=== PATIENT | female | born 1940 | race Caucasian/White ===

== ENCOUNTER 2016-12-14 05:58 | Day surgery (SDC) | payer MEDICARE, OTHER ==
[~2016-12-14] VITALS: Ht 160 cm; Wt 88.5 kg
[~2016-12-14 05:58] MED LIST: AMOXICILLIN500 MG PO; CENTRUM SILVER1 TAB; CLARITIN10 M1 PO; CYMBALTA60 MG PO; FISH OIL CON300 MG PO; FISH OIL1000 M2; FLONASE NASAL50 MCG; HYDROCO/APAP1 TA9 PO; LEVOTHYROXIN50 MCG PO; LIPITOR20 M1 PO; LISINOPRIL20 MG PO; LORTAB 5-325 MG1 TAB PO; LUTEIN20 MG PO; MEDDOSEPAK PO; METAXALONE PO; PRILOSEC20 MG PO; TENORMIN PO; VENTOLIN HF1 IN
[2016-12-14 08:05] VITALS: BP 129/62
[2017-01-03] MEDS ORDERED: VOLTAREN1%GEL TOP (11:47)
== END 2016-12-14 07:55 | disposition home or self-care (01) ==
LOC: ORM 05:58
PROVIDERS: ATTEND Anesthesiology Pain Medicine
PROC: 3E0U33Z Introduction of Anti-inflammatory into Joints, Percutaneous Approach (ICD-10-PCS; principal; 2016-12-14)
PROC: 3E0U3BZ Introduction of Anesthetic Agent into Joints, Percutaneous Approach (ICD-10-PCS; 2016-12-14)
DX: M46.1 Sacroiliitis, not elsewhere classified (principal); M25.551 Pain in right hip
CPT/HCPCS: Q9967

== ENCOUNTER 2017-05-19 12:46 | Emergency (ER) | payer MEDICARE, OTHER ==
[~2017-05-19] VITALS: Ht 160 cm; Wt 90.0 kg
[~2017-05-19 12:46] MED LIST changes: +VOLTAREN1%GEL TOP
[2017-05-19 13:56] VITALS: BP 150/83
== END 2017-05-19 13:55 | disposition home or self-care (01) ==
LOC: ED 12:46
DX: S06.0X0A Concussion without loss of consciousness, initial encounter (principal); I10 Essential (primary) hypertension; E78.00 Pure hypercholesterolemia, unspecified; E03.9 Hypothyroidism, unspecified; G47.30 Sleep apnea, unspecified; K21.9 Gastro-esophageal reflux disease without esophagitis; H35.30 Unspecified macular degeneration; W22.8XXA Striking against or struck by other objects, initial encounter; Y92.009 Unspecified place in unspecified non-institutional (private) residence as the place of occurrence of the external cause

== ENCOUNTER 2017-08-25 13:19 | Emergency (ER) | payer MEDICARE, OTHER ==
[~2017-08-25] VITALS: Ht 160 cm; Wt 86.0 kg
[2017-08-25 16:17] LABS: HEMATOCRIT 39.4 % (37.0-47.0); HEMOGLOBIN 13.3 g/dl (12.0-16.0); IMMATURE GRANULOCYTES 0.4 % (0.0-1.0); MEAN CELL VOLUME 92.9 fL CALC (80.0-100.0); MEAN CORPUSCULAR HGB 31.4 pG CALC (26.0-32.0); MEAN CORPUSCULAR HGB CONC 33.8 g/L CALC (32.0-36.0); NEUT# 2.22 thou/uL (2.00-7.15); RED BLOOD COUNT 4.24 mill/uL (4.20-5.60); RED CELL DISTRI WIDTH 12.2 % (11.5-15.5)
[2017-08-25 16:52] LABS: INFLUENZA A NONE DETECTED (NONE DETECT); INFLUENZA B NONE DETECTED (NONE DETECT)
[2017-08-25] MEDS ORDERED: DELTASONE20 MG PO (17:01)
[2017-08-25] MEDS ORDERED: AMOXICILLIN500 M2 PO (17:01)
[2017-08-25 17:14] VITALS: BP 159/84
== END 2017-08-25 17:15 | disposition home or self-care (01) ==
LOC: ED 13:19
PROVIDERS: Emergency Medicine
DX: J02.0 Streptococcal pharyngitis (principal); R05 Cough; R51 Headache; R50.9 Fever, unspecified; R09.89 Other specified symptoms and signs involving the circulatory and respiratory systems

== ENCOUNTER 2017-10-04 06:54 | Day surgery (SDC) | payer MEDICARE, OTHER ==
[~2017-10-04] VITALS: Ht 160 cm; Wt 87.1 kg
[~2017-10-04 06:54] MED LIST changes: +AMOXICILLIN500 M2 PO; +DELTASONE20 MG PO; +METAXALONE; +NORCO1 TA1 PO
[2017-10-04 10:11] VITALS: BP 148/78
== END 2017-10-04 09:55 | disposition home or self-care (01) ==
LOC: ORM 06:54
PROVIDERS: ATTEND Anesthesiology Pain Medicine
PROC: 3E0U3BZ Introduction of Anesthetic Agent into Joints, Percutaneous Approach (ICD-10-PCS; principal; 2017-10-04)
PROC: 3E0U33Z Introduction of Anti-inflammatory into Joints, Percutaneous Approach (ICD-10-PCS; 2017-10-04)
DX: M46.1 Sacroiliitis, not elsewhere classified (principal)

== ENCOUNTER 2017-10-18 06:43 | Day surgery (SDC) | payer MEDICARE, OTHER ==
[~2017-10-18] VITALS: Ht 160 cm; Wt 87.5 kg
[2017-10-18 08:13] VITALS: BP 158/77
== END 2017-10-18 08:40 | disposition home or self-care (01) ==
LOC: ORM 06:43
PROVIDERS: ATTEND Anesthesiology Pain Medicine
PROC: 3E0U33Z Introduction of Anti-inflammatory into Joints, Percutaneous Approach (ICD-10-PCS; principal; 2017-10-18)
PROC: 3E0U3BZ Introduction of Anesthetic Agent into Joints, Percutaneous Approach (ICD-10-PCS; 2017-10-18)
PROC: 3E0U33Z Introduction of Anti-inflammatory into Joints, Percutaneous Approach (ICD-10-PCS; 2017-10-18)
PROC: 3E0U3BZ Introduction of Anesthetic Agent into Joints, Percutaneous Approach (ICD-10-PCS; 2017-10-18)
DX: M25.562 Pain in left knee (principal); M17.12 Unilateral primary osteoarthritis, left knee; M65.88 Other synovitis and tenosynovitis, other site
CPT/HCPCS: J7325

== ENCOUNTER → 2017-11-01 | Day surgery (SDC) | payer MEDICARE, OTHER ==
[~2017-11-01] VITALS: Ht 160 cm; Wt 86.2 kg
[2017-11-01 07:40] VITALS: BP 139/74
== END ==
LOC: ORM 06:04
PROVIDERS: ATTEND Anesthesiology Pain Medicine
PROC: 3E0U3BZ Introduction of Anesthetic Agent into Joints, Percutaneous Approach (ICD-10-PCS; principal; 2017-11-01)
PROC: 3E0U33Z Introduction of Anti-inflammatory into Joints, Percutaneous Approach (ICD-10-PCS; 2017-11-01)
DX: M25.562 Pain in left knee (principal); M17.12 Unilateral primary osteoarthritis, left knee; M65.9 Synovitis and tenosynovitis, unspecified
CPT/HCPCS: J7325

== ENCOUNTER 2017-11-15 06:44 | Day surgery (SDC) | payer MEDICARE, OTHER ==
[~2017-11-15] VITALS: Ht 160 cm; Wt 86.2 kg
[2017-11-15 08:29] VITALS: BP 159/73
== END 2017-11-15 08:37 | disposition home or self-care (01) ==
LOC: ORM 06:44
PROVIDERS: ATTEND Anesthesiology Pain Medicine
PROC: 3E0U33Z Introduction of Anti-inflammatory into Joints, Percutaneous Approach (ICD-10-PCS; principal; 2017-11-15)
PROC: 3E0U3BZ Introduction of Anesthetic Agent into Joints, Percutaneous Approach (ICD-10-PCS; 2017-11-15)
DX: M25.562 Pain in left knee (principal); M17.12 Unilateral primary osteoarthritis, left knee

== ENCOUNTER 2018-01-24 07:35 | Day surgery (SDC) | payer MEDICARE, OTHER ==
[~2018-01-24] VITALS: Ht 160 cm; Wt 88.5 kg
[~2018-01-24 07:35] MED LIST changes: +VITAMIN D PO
[2018-01-24 09:59] VITALS: BP 146/67
== END 2018-01-24 09:52 | disposition home or self-care (01) ==
LOC: ORM 07:35
PROVIDERS: ATTEND Anesthesiology Pain Medicine
PROC: 3E0U33Z Introduction of Anti-inflammatory into Joints, Percutaneous Approach (ICD-10-PCS; principal; 2018-01-24)
PROC: 3E0U3BZ Introduction of Anesthetic Agent into Joints, Percutaneous Approach (ICD-10-PCS; 2018-01-24)
PROC: 3E0U33Z Introduction of Anti-inflammatory into Joints, Percutaneous Approach (ICD-10-PCS; 2018-01-24)
PROC: 3E0U3BZ Introduction of Anesthetic Agent into Joints, Percutaneous Approach (ICD-10-PCS; 2018-01-24)
DX: M46.1 Sacroiliitis, not elsewhere classified (principal); M54.5 Low back pain; M71.551 Other bursitis, not elsewhere classified, right hip
CPT/HCPCS: 20610; G0260

== ENCOUNTER 2018-02-14 08:30 | Day surgery (SDC) | payer MEDICARE, OTHER ==
[~2018-02-14] VITALS: Ht 160 cm; Wt 85.7 kg
[2018-02-14] MEDS ORDERED: NORCO1 TA1 PO (08:56)
== END 2018-02-14 09:10 | disposition home or self-care (01) ==
LOC: ORM 08:30
PROVIDERS: ATTEND Anesthesiology Pain Medicine
DX: M46.1 Sacroiliitis, not elsewhere classified (principal); M25.551 Pain in right hip; Z53.8 Procedure and treatment not carried out for other reasons

== ENCOUNTER 2018-04-17 14:35 | Emergency (ER) | payer MEDICARE, OTHER ==
[~2018-04-17] VITALS: Ht 160 cm; Wt 90.0 kg
[2018-04-17] MEDS ORDERED: BLOOD PRESSURE MED (15:11)
[2018-04-17 16:25] VITALS: BP 124/74
== END 2018-04-17 16:30 | disposition home or self-care (01) ==
LOC: ED 14:35
DX: S00.03XA Contusion of scalp, initial encounter (principal); S40.011A Contusion of right shoulder, initial encounter; S70.01XA Contusion of right hip, initial encounter; I10 Essential (primary) hypertension; W01.198A Fall on same level from slipping, tripping and stumbling with subsequent striking against other object, initial encounter; Y92.009 Unspecified place in unspecified non-institutional (private) residence as the place of occurrence of the external cause

== ENCOUNTER 2018-05-03 17:30 | Emergency (ER) | payer MEDICARE, OTHER ==
[~2018-05-03] VITALS: Ht 160 cm; Wt 90.0 kg
[~2018-05-03 17:30] MED LIST changes: +BLOOD PRESSURE MED
[2018-05-03 18:40] LABS: HEMOGLOBIN 13.1 g/dl (12.0-16.0); IMMATURE GRANULOCYTES 0.4 % (0.0-5.0); MEAN CELL VOLUME 92.2 fL CALC (80.0-100.0); MEAN CORPUSCULAR HGB CONC 33.6 g/L CALC (32.0-36.0); NEUT# 2.58 thou/uL (2.00-7.15); RED BLOOD COUNT 4.23 mill/uL (4.20-5.60); RED CELL DISTRI WIDTH 12.3 % (11.5-15.5)
[2018-05-03] MEDS ORDERED: AMLODIPINE5 MG PO (18:55)
[2018-05-03 18:56] LABS: ALKALINE PHOSPHATASE 60 u/l (38-126); AMYLASE 71 u/l (30-110); ANION GAP 11 (6-22 (CALC)); BILIRUBIN, TOTAL 0.6 mg/dL (0.0-1.4); BUN 15 mg/dL (8-23); BUN/CREATININE RATIO 20 (12-20 (CALC)); CARBON DIOXIDE 28 mmol/l (22-30); CHLORIDE 105 mmol/l (95-108); CREATININE 0.7 mg/dL (0.5-1.0); GFR > 60 ML/MIN (>=60 (CALC)); GFR FOR AFR.AMER. > 60 ML/MIN (>=60 (CALC)); LIPASE 78 u/l (23-300); POTASSIUM 4.2 mmol/l (3.5-5.1); SGOT/AST 32 u/l (9-36); SGPT/ALT 41 u/l (11-66); SODIUM 140 mmol/l (137-146); TOTAL PROTEIN 7.1 g/dL (6.3-8.2)
[2018-05-03 19:08] LABS: MYOGLOBIN 26 ng/mL (0 - 62)
[2018-05-03 20:38] VITALS: BP 127/68
[2018-05-03 20:44] LABS: URINE BILIRUBIN - DIPSTICK NEGATIVE (NEGATIVE); URINE BLOOD DIPSTICK NEGATIVE (NEGATIVE); URINE COLOR YELLOW; URINE GLUCOSE - DIPSTICK NEGATIVE (NEGATIVE); URINE KETONE NEGATIVE (NEGATIVE); URINE LEUK ESTERASE NEGATIVE (NEGATIVE); URINE NITRITE - DIPSTICK NEGATIVE (Negative); URINE PROTEIN - DIPSTICK NEGATIVE (NEG-TRACE); URINE SPECIFIC GRAVITY 1.015; URINE UROBILINOGEN - DIPSTICK 0.2 E.U./dL (0.2)
[2018-05-03 21:08] LABS: URINE CLARITY CLEAR
== END 2018-05-03 20:51 | disposition left against medical advice (07) ==
LOC: ED 17:30
PROVIDERS: Emergency Medicine
DX: R07.9 Chest pain, unspecified (principal); I10 Essential (primary) hypertension; Z91.19 Patient's noncompliance with other medical treatment and regimen
CPT/HCPCS: S0164

== ENCOUNTER 2018-08-15 07:28 | Day surgery (SDC) | payer MEDICARE, OTHER ==
[~2018-08-15] VITALS: Ht 160 cm; Wt 83.9 kg
[~2018-08-15 07:28] MED LIST changes: +AMLODIPINE5 MG PO
[2018-08-15 09:34] VITALS: BP 146/72
== END 2018-08-15 10:25 | disposition home or self-care (01) ==
LOC: ORM 07:28
PROVIDERS: ATTEND Anesthesiology Pain Medicine
PROC: 3E0U33Z Introduction of Anti-inflammatory into Joints, Percutaneous Approach (ICD-10-PCS; principal; 2018-08-15)
PROC: 3E0U3BZ Introduction of Anesthetic Agent into Joints, Percutaneous Approach (ICD-10-PCS; 2018-08-15)
PROC: 3E0U33Z Introduction of Anti-inflammatory into Joints, Percutaneous Approach (ICD-10-PCS; 2018-08-15)
PROC: 3E0U3BZ Introduction of Anesthetic Agent into Joints, Percutaneous Approach (ICD-10-PCS; 2018-08-15)
DX: M46.1 Sacroiliitis, not elsewhere classified (principal); M25.551 Pain in right hip; M70.71 Other bursitis of hip, right hip
CPT/HCPCS: 20610; G0260

== ENCOUNTER 2018-09-12 06:05 | Day surgery (SDC) | payer MEDICARE, OTHER ==
[~2018-09-12] VITALS: Ht 160 cm; Wt 83.9 kg
[2018-09-12 07:59] VITALS: BP 125/56
[2018-09-12] MEDS ORDERED: VOLTAREN1%GEL TOP ×2 (08:02→08:03)
== END 2018-09-12 08:20 | disposition home or self-care (01) ==
LOC: ORM 06:05
PROVIDERS: ATTEND Anesthesiology Pain Medicine
PROC: 3E0T3BZ Introduction of Anesthetic Agent into Peripheral Nerves and Plexi, Percutaneous Approach (ICD-10-PCS; principal; 2018-09-12)
PROC: 3E0T33Z Introduction of Anti-inflammatory into Peripheral Nerves and Plexi, Percutaneous Approach (ICD-10-PCS; 2018-09-12)
PROC: BR141ZZ Fluoroscopy of Cervical Facet Joint(s) using Low Osmolar Contrast (ICD-10-PCS; 2018-09-12)
DX: M54.2 Cervicalgia (principal); M47.812 Spondylosis without myelopathy or radiculopathy, cervical region
CPT/HCPCS: Q9967

== ENCOUNTER 2018-11-07 06:18 | Day surgery (SDC) | payer MEDICARE, OTHER ==
[~2018-11-07] VITALS: Ht 160 cm; Wt 83.0 kg
[~2018-11-07 06:18] MED LIST changes: +NORCO1 TA2 PO
[2018-11-07 07:56] VITALS: BP 125/63
== END 2018-11-07 08:16 | disposition home or self-care (01) ==
LOC: ORM 06:18
PROVIDERS: ATTEND Anesthesiology Pain Medicine
PROC: 3E0U33Z Introduction of Anti-inflammatory into Joints, Percutaneous Approach (ICD-10-PCS; principal; 2018-11-07)
PROC: 3E0U3BZ Introduction of Anesthetic Agent into Joints, Percutaneous Approach (ICD-10-PCS; 2018-11-07)
PROC: 3E0U33Z Introduction of Anti-inflammatory into Joints, Percutaneous Approach (ICD-10-PCS; 2018-11-07)
PROC: 3E0U3BZ Introduction of Anesthetic Agent into Joints, Percutaneous Approach (ICD-10-PCS; 2018-11-07)
DX: M46.1 Sacroiliitis, not elsewhere classified (principal); M25.551 Pain in right hip; M70.61 Trochanteric bursitis, right hip; M54.5 Low back pain
CPT/HCPCS: 20610; G0260

== ENCOUNTER 2019-01-02 06:55 | Day surgery (SDC) | payer MEDICARE, OTHER ==
[~2019-01-02] VITALS: Ht 160 cm; Wt 86.2 kg
[2019-01-02 08:58] VITALS: BP 100/58
== END 2019-01-02 09:05 | disposition home or self-care (01) ==
LOC: ENDO 06:55 → ORM 08:15 → ENDO 08:15
PROVIDERS: ATTEND Surgery
PROC: 0DJ08ZZ Inspection of Upper Intestinal Tract, Via Natural or Artificial Opening Endoscopic (ICD-10-PCS; principal; 2019-01-02)
DX: K44.9 Diaphragmatic hernia without obstruction or gangrene (principal); I10 Essential (primary) hypertension; E03.9 Hypothyroidism, unspecified

== ENCOUNTER 2019-02-27 06:43 | Day surgery (SDC) | payer MEDICARE, OTHER ==
[2019-02-27 08:58] VITALS: BP 147/73
== END 2019-02-27 09:25 | disposition home or self-care (01) ==
LOC: ORM 06:43
PROVIDERS: ATTEND Anesthesiology Pain Medicine
PROC: 3E0T3BZ Introduction of Anesthetic Agent into Peripheral Nerves and Plexi, Percutaneous Approach (ICD-10-PCS; principal; 2019-02-27)
PROC: 3E0T33Z Introduction of Anti-inflammatory into Peripheral Nerves and Plexi, Percutaneous Approach (ICD-10-PCS; 2019-02-27)
PROC: BR161ZZ Fluoroscopy of Lumbar Facet Joint(s) using Low Osmolar Contrast (ICD-10-PCS; 2019-02-27)
PROC: 3E0T3BZ Introduction of Anesthetic Agent into Peripheral Nerves and Plexi, Percutaneous Approach (ICD-10-PCS; 2019-02-27)
PROC: 3E0T33Z Introduction of Anti-inflammatory into Peripheral Nerves and Plexi, Percutaneous Approach (ICD-10-PCS; 2019-02-27)
DX: M54.5 Low back pain (principal)

== ENCOUNTER 2019-03-18 06:50 | Emergency (ER) | payer MEDICARE, OTHER ==
[~2019-03-18] VITALS: Ht 160 cm; Wt 84.1 kg
[2019-03-18 07:46] LABS: HEMATOCRIT 37.8 % (37.0-47.0); HEMOGLOBIN 12.8 g/dl (12.0-16.0); IMMATURE GRANULOCYTES 0.2 % (0.0-5.0); MEAN CELL VOLUME 91.1 fL CALC (80.0-100.0); MEAN CORPUSCULAR HGB 30.8 pG CALC (26.0-32.0); MEAN CORPUSCULAR HGB CONC 33.9 g/L CALC (32.0-36.0); NEUT# 2.26 thou/uL (2.00-7.15); RED BLOOD COUNT 4.15 mill/uL (4.20-5.60)
[2019-03-18 08:04] LABS: ANION GAP 14 (6-22 (CALC)); BUN 18 mg/dL (8-23); BUN/CREATININE RATIO 26 (12-20 (CALC)); CARBON DIOXIDE 26 mmol/l (22-30); CHLORIDE 105 mmol/l (95-108); CREATININE 0.7 mg/dL (0.5-1.0); GFR > 60 ML/MIN (>=60 (CALC)); GFR FOR AFR.AMER. > 60 ML/MIN (>=60 (CALC)); POTASSIUM 4.2 mmol/l (3.5-5.1); SODIUM 141 mmol/l (137-146)
[2019-03-18 08:54] VITALS: BP 139/88
== END 2019-03-18 09:03 | disposition home or self-care (01) ==
LOC: ED 06:50
PROVIDERS: Family Medicine
DX: R51 Headache (principal); I10 Essential (primary) hypertension

== ENCOUNTER 2019-05-11 15:33 | Emergency (ER) | payer MEDICARE, OTHER ==
[~2019-05-11] VITALS: Ht 160 cm; Wt 110.0 kg
[2019-05-11] MEDS ORDERED: HYDROCODONE BIT1 TA9 PO (15:55)
[2019-05-11] MEDS ORDERED: CLEOCIN300 MG PO (15:57)
[2019-05-11 16:06] VITALS: BP 141/77
== END 2019-05-11 16:18 | disposition home or self-care (01) ==
LOC: ED 15:33
DX: K11.20 Sialoadenitis, unspecified (principal); I10 Essential (primary) hypertension; E03.9 Hypothyroidism, unspecified

== ENCOUNTER 2019-07-24 18:45 | Emergency (ER) | payer MEDICARE, OTHER ==
[~2019-07-24 18:45] MED LIST changes: -CENTRUM SILVER1 TAB; +CENTRUM SILVER1 TAB PO; +CLEOCIN300 MG PO; +HYDROCODONE BIT1 TA9 PO
== END 2019-07-24 18:56 | disposition left against medical advice (07) ==
LOC: ED 18:45 → LWOBS 18:56
DX: Z53.29 Procedure and treatment not carried out because of patient's decision for other reasons (principal)

== ENCOUNTER 2019-07-31 16:41 | Emergency (ER) | payer MEDICARE, OTHER ==
[~2019-07-31] VITALS: Ht 160 cm; Wt 80.0 kg
[2019-07-31] MEDS ORDERED: EZETIMIBE10 MG PO (17:17)
[2019-07-31] MEDS ORDERED: OMEPRAZOLE DR40 MG PO (17:18)
[2019-07-31] MEDS ORDERED: LEVOTHYROXIN75 MC1 PO (17:18)
[2019-07-31] MEDS ORDERED: ATENOLOL50 MG PO (17:18)
[2019-07-31 17:30] VITALS: BP 143/85
== END 2019-07-31 17:30 | disposition home or self-care (01) ==
LOC: ED 16:41
DX: S20.212A Contusion of left front wall of thorax, initial encounter (principal); I10 Essential (primary) hypertension; E03.9 Hypothyroidism, unspecified; W18.30XA Fall on same level, unspecified, initial encounter

== ENCOUNTER 2019-08-07 05:51 | Day surgery (SDC) | payer MEDICARE, OTHER ==
[~2019-08-07] VITALS: Ht 160 cm; Wt 79.4 kg
[~2019-08-07 05:51] MED LIST changes: +ATENOLOL50 MG PO; +EZETIMIBE10 MG PO; +LEVOTHYROXIN75 MC1 PO; +OMEPRAZOLE DR40 MG PO
[2019-08-07 07:48] VITALS: BP 158/75
== END 2019-08-07 08:22 ==
LOC: ORM 05:51
PROVIDERS: ATTEND Anesthesiology Pain Medicine
DX: M54.5 Low back pain (principal); M12.9 Arthropathy, unspecified

== ENCOUNTER 2019-08-21 07:25 | Day surgery (SDC) | payer MEDICARE, OTHER ==
[~2019-08-21] VITALS: Ht 160 cm; Wt 78.5 kg
[2019-08-21 09:31] VITALS: BP 139/69
[2019-08-21] MEDS ORDERED: NORCO1 TA2 PO (09:39)
[2019-10-29] MEDS ORDERED: NORCO1 TA2 PO (11:33)
[2019-10-29] MEDS ORDERED: VOLTAREN1%GEL TOP (11:34)
== END 2019-08-21 09:52 | disposition home or self-care (01) ==
LOC: ORM 07:25
PROVIDERS: ATTEND Anesthesiology Pain Medicine
DX: M54.5 Low back pain (principal)

== ENCOUNTER 2019-09-11 | Day surgery (SDC) | payer MEDICARE, OTHER ==
[2019-09-11] MEDS ORDERED: REPATHA SUR140 MG/ML (08:39)
[2019-10-29] MEDS ORDERED: NORCO1 TA2 PO (11:33)
[2019-10-29] MEDS ORDERED: VOLTAREN1%GEL TOP (11:34)
[2019-12-10] MEDS ORDERED: DICLOFENAC75 MG PO (13:08)
[2020-05-26] MEDS ORDERED: NORCO1 TA2 PO ×2 (16:13→16:14)
[2020-07-14] MEDS ORDERED: NORCO1 TA2 PO (14:01)
[2020-07-14] MEDS ORDERED: VOLTAREN1%GEL TOP (14:03)
== END 2019-09-11 10:27 | disposition home or self-care (01) ==
DX: M54.5 Low back pain (principal); M12.9 Arthropathy, unspecified

== ENCOUNTER 2019-11-06 | Day surgery (SDC) | payer MEDICARE, OTHER ==
[~2019-11-06] MED LIST changes: +REPATHA SUR140 MG/ML
[2019-12-10] MEDS ORDERED: DICLOFENAC75 MG PO (13:08)
[2020-05-26] MEDS ORDERED: NORCO1 TA2 PO ×2 (16:13→16:14)
[2020-07-14] MEDS ORDERED: NORCO1 TA2 PO (14:01)
[2020-07-14] MEDS ORDERED: VOLTAREN1%GEL TOP (14:03)
== END 2019-11-06 08:35 | disposition home or self-care (01) ==
DX: M25.551 Pain in right hip (principal); M70.61 Trochanteric bursitis, right hip; M76.821 Posterior tibial tendinitis, right leg

== ENCOUNTER 2019-11-27 08:19 | Day surgery (SDC) | payer MEDICARE, OTHER ==
[2019-11-27] MEDS ORDERED: NORCO1 TA2 PO (08:52)
[2019-11-27] MEDS ORDERED: DICLOFENAC75 MG PO (08:54)
[2019-12-10] MEDS ORDERED: DICLOFENAC75 MG PO (13:08)
[2020-05-26] MEDS ORDERED: NORCO1 TA2 PO ×2 (16:13→16:14)
[2020-07-14] MEDS ORDERED: NORCO1 TA2 PO (14:01)
[2020-07-14] MEDS ORDERED: VOLTAREN1%GEL TOP (14:03)
== END 2019-11-27 09:00 | disposition home or self-care (01) ==
LOC: ORM 08:19 → LWOBS 08:19 → ORM 09:00
PROVIDERS: ATTEND Anesthesiology Pain Medicine
DX: M25.551 Pain in right hip (principal); M70.61 Trochanteric bursitis, right hip; M76.31 Iliotibial band syndrome, right leg

== ENCOUNTER 2020-02-17 | Emergency (ER) | payer MEDICARE, OTHER ==
[~2020-02-17] MED LIST changes: +DICLOFENAC75 MG PO
[2020-02-17] MEDS ORDERED: ZOFRAN4 MG/TAB PO (17:48)
[2020-02-17] MEDS ORDERED: PERCOCET 10/31 COMBO PO (17:48)
[2020-05-26] MEDS ORDERED: NORCO1 TA2 PO ×2 (16:13→16:14)
[2020-07-14] MEDS ORDERED: NORCO1 TA2 PO (14:01)
[2020-07-14] MEDS ORDERED: VOLTAREN1%GEL TOP (14:03)
== END 2020-02-17 18:22 | disposition home or self-care (01) ==
PROC: 2W3AXYZ Immobilization of Right Upper Arm using Other Device (ICD-10-PCS; principal; 2020-02-17)
DX: S42.291A Other displaced fracture of upper end of right humerus, initial encounter for closed fracture (principal); M25.521 Pain in right elbow; I10 Essential (primary) hypertension; E03.9 Hypothyroidism, unspecified; W10.1XXA Fall (on)(from) sidewalk curb, initial encounter; Y92.410 Unspecified street and highway as the place of occurrence of the external cause

== ENCOUNTER 2020-02-18 19:07 | Emergency (ER) | payer MEDICARE, OTHER ==
[~2020-02-18 19:07] MED LIST changes: +PERCOCET 10/31 COMBO PO; +ZOFRAN4 MG/TAB PO
[2020-02-18 19:41] VITALS: BP 141/79
[2020-05-26] MEDS ORDERED: NORCO1 TA2 PO ×2 (16:13→16:14)
[2020-07-14] MEDS ORDERED: NORCO1 TA2 PO (14:01)
[2020-07-14] MEDS ORDERED: VOLTAREN1%GEL TOP (14:03)
== END 2020-02-18 19:41 | disposition home or self-care (01) ==
LOC: ED 19:07
DX: S42.91XD Fracture of right shoulder girdle, part unspecified, subsequent encounter for fracture with routine healing (principal); I10 Essential (primary) hypertension; E03.9 Hypothyroidism, unspecified; X58.XXXD Exposure to other specified factors, subsequent encounter

== ENCOUNTER 2020-11-07 13:04 | Emergency (ER) | payer MEDICARE, OTHER ==
[~2020-11-07] VITALS: Ht 160 cm; Wt 72.3 kg
[2020-11-07] MEDS ORDERED: DOCUSIL100 MG PO (13:35)
[2020-11-07 13:54] LABS: HEMATOCRIT 40.6 % (37.0-47.0); HEMOGLOBIN 13.3 g/dl (12.0-16.0); IMMATURE GRANULOCYTES 0.3 % (0.0-5.0); MEAN CORPUSCULAR HGB 30.8 pG CALC (26.0-32.0); MEAN CORPUSCULAR HGB CONC 32.8 g/dL CAL (32.0-36.0); NEUT# 3.21 thou/uL (2.00-7.15); RED BLOOD COUNT 4.32 mill/uL (4.20-5.60); RED CELL DISTRI WIDTH 11.8 % (11.5-15.5)
[2020-11-07 14:18] LABS: ALKALINE PHOSPHATASE 74 u/l (38-126); ANION GAP 10 (6-22 (CALC)); BILIRUBIN, TOTAL 0.5 mg/dL (0.0-1.4); BUN 17 mg/dL (8-23); BUN/CREATININE RATIO 23 (12-20 (CALC)); CARBON DIOXIDE 27 mmol/l (22-30); CHLORIDE 105 mmol/l (95-108); CREATININE 0.8 mg/dL (0.5-1.0); GFR > 60 ML/MIN (>=60 (CALC)); GFR FOR AFR.AMER. > 60 ML/MIN (>=60 (CALC)); POTASSIUM 4.4 mmol/l (3.5-5.1); SGOT/AST 23 u/l (9-36); SODIUM 137 mmol/l (137-146); TOTAL PROTEIN 6.8 g/dL (6.3-8.2)
[2020-11-07 14:18] LABS: URINE BILIRUBIN - DIPSTICK NEGATIVE (NEGATIVE); URINE BLOOD DIPSTICK NEGATIVE (NEGATIVE); URINE COLOR YELLOW; URINE GLUCOSE - DIPSTICK NEGATIVE (NEGATIVE); URINE KETONE NEGATIVE (NEGATIVE); URINE LEUK ESTERASE NEGATIVE (NEGATIVE); URINE NITRITE - DIPSTICK NEGATIVE (Negative); URINE PH 5.5 (4.5-8.0); URINE PROTEIN - DIPSTICK NEGATIVE (NEG-TRACE); URINE UROBILINOGEN - DIPSTICK 0.2 E.U./dL (0.2)
[2020-11-07] MEDS ORDERED: FLEXERIL5 M1 PO (15:25)
[2020-11-07] MEDS ORDERED: FIORICET PO (15:25)
[2020-11-07 15:30] VITALS: BP 132/68
== END 2020-11-07 15:30 | disposition home or self-care (01) ==
LOC: ED 13:04
DX: R51.9 Headache, unspecified (principal); H93.13 Tinnitus, bilateral; I10 Essential (primary) hypertension; E03.9 Hypothyroidism, unspecified; K21.9 Gastro-esophageal reflux disease without esophagitis

== ENCOUNTER 2021-07-21 06:58 | Day surgery (SDC) | payer MEDICARE, OTHER ==
[~2021-07-21] VITALS: Ht 160 cm; Wt 74.8 kg
[~2021-07-21 06:58] MED LIST changes: +DOCUSIL100 MG PO; +FIORICET PO; +FLEXERIL5 M1 PO; +HYDROCO/APAP1 T10 PO; -REPATHA SUR140 MG/ML; +REPATHA SUR140 MG/ML SC
[2021-07-21 11:17] VITALS: BP 167/72
== END 2021-07-21 09:55 | disposition home or self-care (01) ==
LOC: ORM 06:58
PROVIDERS: ATTEND Anesthesiology Pain Medicine
DX: M76.32 Iliotibial band syndrome, left leg (principal); M70.60 Trochanteric bursitis, unspecified hip; M70.62 Trochanteric bursitis, left hip

== ENCOUNTER 2021-08-18 21:52 | Observation (INO) | payer MEDICARE, OTHER ==
[~2021-08-18] VITALS: Ht 162.6 cm; Wt 76.6 kg
[2021-08-18 22:34] LABS: HEMATOCRIT 37.6 % (37.0-47.0); HEMOGLOBIN 12.8 g/dl (12.0-16.0); IMMATURE GRANULOCYTES 0.2 % (0.0-5.0); MEAN CELL VOLUME 93.3 fL CALC (80.0-100.0); MEAN CORPUSCULAR HGB 31.8 pG CALC (26.0-32.0); NEUT# 2.47 thou/uL (2.00-7.15); RED BLOOD COUNT 4.03 mill/uL (4.20-5.60)
[2021-08-18 22:51] LABS: ALBUMIN 4.1 g/dL (3.2-5.0); ALKALINE PHOSPHATASE 77 u/l (38-126); AMYLASE 72 u/l (30-110); ANION GAP 9 (6-22 (CALC)); BILIRUBIN, TOTAL 0.5 mg/dL (0.0-1.4); BUN 23 mg/dL (8-23); BUN/CREATININE RATIO 22 (12-20 (CALC)); CARBON DIOXIDE 33 mmol/l (22-30); CHLORIDE 103 mmol/l (95-108); GFR 53 ML/MIN (>=60 (CALC)); GFR FOR AFR.AMER. > 60 ML/MIN (>=60 (CALC)); LIPASE 61 u/l (23-300); SGOT/AST 23 u/l (9-36); SODIUM 141 mmol/l (137-146); TOTAL PROTEIN 7.1 g/dL (6.3-8.2)
[2021-08-18 22:54] LABS: ACT PARTIAL THROMBO TIME 20.1 SECONDS (20.0-32.5); INTERNATIONAL NORMALIZED RATIO 0.9 RATIO (0.7-1.3); PROTHROMBIN TIME 9.7 SECONDS (9.0-12.5)
[2021-08-19 01:15] VITALS: BP 165/79
[2021-08-19 04:00] VITALS: BP 135/61
[2021-08-19 07:10] VITALS: BP 124/80
[2021-08-19 10:53] VITALS: BP 136/81
[2021-08-19 11:20] VITALS: BP 136/81
== END 2021-08-19 12:45 | disposition home or self-care (01) ==
LOC: ED 21:52 → ED-I 23:38 → ED 08-19 00:08 → MS2 08-19 00:09
PROVIDERS: ADMIT Hospitalist; ATTEND Hospitalist
DX: R07.9 Chest pain, unspecified (principal); I10 Essential (primary) hypertension; E03.9 Hypothyroidism, unspecified; E78.5 Hyperlipidemia, unspecified; K21.9 Gastro-esophageal reflux disease without esophagitis; M47.816 Spondylosis without myelopathy or radiculopathy, lumbar region; M47.812 Spondylosis without myelopathy or radiculopathy, cervical region; G89.4 Chronic pain syndrome; Z23 Encounter for immunization; Z20.822 Contact with and (suspected) exposure to COVID-19
CPT/HCPCS: G0378; Q9967

== ENCOUNTER 2021-10-22 11:50 | Emergency (ER) | payer MEDICARE, OTHER ==
[~2021-10-22] VITALS: Ht 162.6 cm; Wt 70.0 kg
[~2021-10-22 11:50] MED LIST changes: +PERCOCET1 TA2 PO
[2021-10-22 14:34] VITALS: BP 141/78
[2021-10-22] MEDS ORDERED: TESSALON PERLE100 MG PO (15:05)
== END 2021-10-22 15:29 | disposition home or self-care (01) ==
LOC: ED 11:50
DX: U07.1 COVID-19 (principal); I10 Essential (primary) hypertension; E78.00 Pure hypercholesterolemia, unspecified; E03.9 Hypothyroidism, unspecified; K21.9 Gastro-esophageal reflux disease without esophagitis

== ENCOUNTER 2021-11-24 08:29 | Day surgery (SDC) | payer MEDICARE ==
[~2021-11-24] VITALS: Ht 162.6 cm; Wt 73.9 kg
[~2021-11-24 08:29] MED LIST changes: +TESSALON PERLE100 MG PO
[2021-11-24 10:47] VITALS: BP 129/71
== END 2021-11-24 11:07 | disposition home or self-care (01) ==
LOC: ORM 08:29
PROVIDERS: ATTEND Physical Medicine & Rehabilitation
DX: M17.12 Unilateral primary osteoarthritis, left knee (principal); M22.42 Chondromalacia patellae, left knee; M25.462 Effusion, left knee
CPT/HCPCS: J3490; Q9967

== ENCOUNTER → 2021-12-29 | Day surgery (SDC) | payer MEDICARE, OTHER ==
[2021-12-29 09:09] VITALS: BP 156/86
== END | disposition home or self-care (01) ==
LOC: ORM 06:44
PROVIDERS: ATTEND Physical Medicine & Rehabilitation
DX: M17.12 Unilateral primary osteoarthritis, left knee (principal); M25.662 Stiffness of left knee, not elsewhere classified; R26.9 Unspecified abnormalities of gait and mobility; M25.551 Pain in right hip; G89.4 Chronic pain syndrome
CPT/HCPCS: Q9967

== ENCOUNTER 2022-01-16 13:33 | Emergency (ER) | payer MEDICARE, OTHER ==
[~2022-01-16] VITALS: Ht 160 cm; Wt 75.4 kg
[2022-01-16 13:43] VITALS: BP 150/79
[2022-01-16 14:00] VITALS: BP 152/83
[2022-01-16 14:27] LABS: IMMATURE GRANULOCYTES 0.2 % (0.0-5.0); MEAN CELL VOLUME 94.3 fL CALC (80.0-100.0); MEAN CORPUSCULAR HGB 31.6 pG CALC (26.0-32.0); MEAN CORPUSCULAR HGB CONC 33.6 g/dL CAL (32.0-36.0); RED BLOOD COUNT 6.29 mill/uL (4.20-5.60)
[2022-01-16 14:31] LABS: HEMATOCRIT 59.3 % (37.0-47.0); HEMOGLOBIN 19.9 g/dl (12.0-16.0)
[2022-01-16 14:40] VITALS: BP 152/77
[2022-01-16 14:42] LABS: ALBUMIN 4.2 g/dL (3.2-5.0); ALKALINE PHOSPHATASE 61 u/l (38-126); ANION GAP 9 (6-22 (CALC)); BILIRUBIN, TOTAL 0.6 mg/dL (0.0-1.4); BUN 24 mg/dL (8-23); BUN/CREATININE RATIO 30 (12-20 (CALC)); CARBON DIOXIDE 29 mmol/l (22-30); CHLORIDE 103 mmol/l (95-108); CREATININE 0.8 mg/dL (0.5-1.0); GFR > 60 ML/MIN (>=60 (CALC)); GFR FOR AFR.AMER. > 60 ML/MIN (>=60 (CALC)); POTASSIUM 4.1 mmol/l (3.5-5.1); SGOT/AST 26 u/l (9-36); SODIUM 136 mmol/l (137-146); TOTAL PROTEIN 7.4 g/dL (6.3-8.2)
[2022-01-16 15:00] VITALS: BP 158/83
[2022-01-16 15:30] VITALS: BP 162/79
[2022-01-16 15:52] VITALS: BP 162/79
== END 2022-01-16 16:22 | disposition home or self-care (01) ==
LOC: ED 13:33
PROVIDERS: Family Medicine
DX: S00.93XA Contusion of unspecified part of head, initial encounter (principal); M25.512 Pain in left shoulder; R07.89 Other chest pain; I10 Essential (primary) hypertension; E78.00 Pure hypercholesterolemia, unspecified; E03.9 Hypothyroidism, unspecified; K21.9 Gastro-esophageal reflux disease without esophagitis; H35.30 Unspecified macular degeneration; W18.30XA Fall on same level, unspecified, initial encounter; Y92.009 Unspecified place in unspecified non-institutional (private) residence as the place of occurrence of the external cause

== ENCOUNTER 2022-06-24 10:06 | Emergency (ER) | payer MEDICARE, OTHER ==
[~2022-06-24] VITALS: Ht 160 cm; Wt 77.1 kg
[2022-06-24] MEDS ORDERED: VOLTAREN1%GEL TOP (13:56)
[2022-06-24 14:13] VITALS: BP 129/80
== END 2022-06-24 14:20 | disposition home or self-care (01) ==
LOC: ED 10:06
DX: M54.2 Cervicalgia (principal); M25.562 Pain in left knee; M25.552 Pain in left hip; E78.00 Pure hypercholesterolemia, unspecified; I10 Essential (primary) hypertension; W06.XXXA Fall from bed, initial encounter; Y92.003 Bedroom of unspecified non-institutional (private) residence as the place of occurrence of the external cause

== ENCOUNTER 2022-08-14 03:14 | Emergency (ER) | payer MEDICARE, OTHER ==
[2022-08-14] VITALS (8 sets, daily range): BP systolic 135–153; BP diastolic 76–86
[~2022-08-14] VITALS: Ht 160 cm; Wt 78.2 kg
[2022-08-14] MEDS ORDERED: LUTEIN20 MG PO (03:30)
[2022-08-14] MEDS ORDERED: HYDROCO/APAP1 T10 PO (03:30)
[2022-08-14] MEDS ORDERED: OMEPRAZOLE DR40 MG PO (03:31)
[2022-08-14] MEDS ORDERED: NORVASC5 M1 PO (03:32)
[2022-08-14] MEDS ORDERED: DEXAMETHASON0.5 MG PO (03:33)
[2022-08-14] MEDS ORDERED: TRAMADOL HCL50 MG PO (03:33)
[2022-08-14] MEDS ORDERED: MELOXICAM7.5 MG PO (03:34)
[2022-08-14 03:43] LABS: HEMATOCRIT 38.9 % (37.0-47.0); MEAN CORPUSCULAR HGB 31.4 pG CALC (26.0-32.0); MEAN CORPUSCULAR HGB CONC 33.4 g/dL CAL (32.0-36.0); NEUT# 5.07 thou/uL (2.00-7.15); RED BLOOD COUNT 4.14 mill/uL (4.20-5.60)
[2022-08-14 03:52] LABS: ALBUMIN 3.9 g/dL (3.2-5.0); ALKALINE PHOSPHATASE 68 u/l (38-126); ANION GAP 10 (6-22 (CALC)); BILIRUBIN, TOTAL 0.5 mg/dL (0.0-1.4); BUN 28 mg/dL (8-23); BUN/CREATININE RATIO 27 (12-20 (CALC)); CARBON DIOXIDE 31 mmol/l (22-30); CHLORIDE 102 mmol/l (95-108); GFR FOR AFR.AMER. > 60 ML/MIN (>=60 (CALC)); GFR OTHER RACES 53 ML/MIN (>=60 (CALC)); LIPASE 95 u/l (23-300); SGOT/AST 17 u/l (9-36); SODIUM 138 mmol/l (137-146); TOTAL PROTEIN 6.5 g/dL (6.3-8.2)
[2022-08-14 03:54] LABS: POTASSIUM 5.3 mmol/l (3.5-5.1)
[2022-08-14 05:10] LABS: URINE BILIRUBIN - DIPSTICK NEGATIVE (NEGATIVE); URINE BLOOD DIPSTICK NEGATIVE (NEGATIVE); URINE COLOR YELLOW; URINE GLUCOSE - DIPSTICK NEGATIVE (NEGATIVE); URINE KETONE NEGATIVE (NEGATIVE); URINE LEUK ESTERASE NEGATIVE (NEGATIVE); URINE PROTEIN - DIPSTICK NEGATIVE (NEG-TRACE); URINE SPECIFIC GRAVITY <=1.005; URINE UROBILINOGEN - DIPSTICK 0.2 E.U./dL (0.2)
[2022-08-14 05:11] LABS: URINE NITRITE - DIPSTICK NEGATIVE (Negative)
[2022-08-14] MEDS ORDERED: CITRATE OF MEGNESIA PO (05:16)
[2022-08-14] MEDS ORDERED: MIRALAX17 GM PO (05:16)
== END 2022-08-14 06:01 | disposition home or self-care (01) ==
LOC: ED 03:14
PROVIDERS: Family Medicine
DX: K59.00 Constipation, unspecified (principal); I10 Essential (primary) hypertension; E78.00 Pure hypercholesterolemia, unspecified; E03.9 Hypothyroidism, unspecified; K21.9 Gastro-esophageal reflux disease without esophagitis

== ENCOUNTER 2023-07-15 17:19 | Emergency (ER) | payer MEDICARE, OTHER ==
[~2023-07-15] VITALS: Ht 160 cm; Wt 68.9 kg
[~2023-07-15 17:19] MED LIST changes: +CITRATE OF MEGNESIA PO; +DEXAMETHASON0.5 MG PO; +MELOXICAM7.5 MG PO; +MIRALAX17 GM PO; +NORVASC5 M1 PO; +REGLAN10 MG PO; +TRAMADOL HCL50 MG PO
[2023-07-15 17:28] VITALS: BP 137/75
[2023-07-15 17:30] VITALS: BP 140/73
[2023-07-15 18:07] LABS: BASO% 0.7 % (0-3); HEMATOCRIT 38.7 % (37.0-47.0); HEMOGLOBIN 13.1 g/dl (12.0-16.0); LYMPH% 43.4 % (15-41); MEAN CELL VOLUME 92.4 fL CALC (80.0-100.0); MEAN CORPUSCULAR HGB 31.3 pG CALC (26.0-32.0); MEAN CORPUSCULAR HGB CONC 33.9 g/dL CAL (32.0-36.0); MONO% 8.3 % (2-13); NEUT# 2.64 thou/uL (2.00-7.15); NEUT% 44.6 % (42-76); RED BLOOD COUNT 4.19 mill/uL (4.20-5.60); RED CELL DISTRI WIDTH 11.9 % (11.5-15.5)
[2023-07-15 18:23] LABS: ALBUMIN 4.1 g/dL (3.2-5.0); ALKALINE PHOSPHATASE 78 u/l (38-126); ANION GAP 12 (6-22 (CALC)); BILIRUBIN, TOTAL 0.7 mg/dL (0.02-1.3); BUN 18 mg/dL (8-23); BUN/CREATININE RATIO 18 (12-20 (CALC)); CARBON DIOXIDE 25 mmol/l (22-30); CHLORIDE 105 mmol/l (95-108); GFR FOR AFR.AMER. > 60 ML/MIN (>=60 (CALC)); GFR OTHER RACES 53 ML/MIN (>=60 (CALC)); LIPASE 51 u/l (23-300); POTASSIUM 4.2 mmol/l (3.5-5.1); SGOT/AST 23 u/l (9-36); SODIUM 138 mmol/l (137-146); TOTAL PROTEIN 6.9 g/dL (6.3-8.2)
[2023-07-15 18:33] VITALS: BP 151/78
[2023-07-15] MEDS ORDERED: DULCOLAX10 MG RE (18:42)
[2023-07-15 18:51] VITALS: BP 151/78
== END 2023-07-15 18:58 | disposition home or self-care (01) ==
LOC: ED 17:19
PROVIDERS: Family Medicine
DX: K59.00 Constipation, unspecified (principal); I10 Essential (primary) hypertension; K21.9 Gastro-esophageal reflux disease without esophagitis; E78.00 Pure hypercholesterolemia, unspecified

== ENCOUNTER 2023-11-05 09:29 | Emergency (ER) | payer MEDICARE, OTHER ==
[~2023-11-05] VITALS: Ht 160 cm; Wt 68.0 kg
[2023-11-05] VITALS (9 sets, daily range): BP systolic 123–158; BP diastolic 66–82
[~2023-11-05 09:29] MED LIST changes: +DULCOLAX10 MG RE
[2023-11-05 10:22] LABS: ALBUMIN 3.7 g/dL (3.2-5.0); ALKALINE PHOSPHATASE 81 u/l (38-126); ANION GAP 9 (6-22 (CALC)); BILIRUBIN, TOTAL 0.8 mg/dL (0.02-1.3); BUN 17 mg/dL (8-23); BUN/CREATININE RATIO 22 (12-20 (CALC)); CARBON DIOXIDE 26 mmol/l (22-30); CHLORIDE 105 mmol/l (95-108); CREATININE 0.8 mg/dL (0.5-1.0); GFR FOR AFR.AMER. > 60 ML/MIN (>=60 (CALC)); GFR OTHER RACES > 60 ML/MIN (>=60 (CALC)); LIPASE 36 u/l (23-300); POTASSIUM 4.3 mmol/l (3.5-5.1); SGOT/AST 22 u/l (9-36); SODIUM 136 mmol/l (137-146); TOTAL PROTEIN 6.7 g/dL (6.3-8.2)
[2023-11-05 10:45] LABS: URINE BILIRUBIN - DIPSTICK Negative (NEGATIVE); URINE BLOOD DIPSTICK Negative (NEGATIVE); URINE GLUCOSE - DIPSTICK Negative (NEGATIVE); URINE KETONE Negative (NEGATIVE); URINE LEUK ESTERASE Trace (NEGATIVE); URINE NITRITE - DIPSTICK Negative (Negative); URINE PH 5.5 (4.5-8.0); URINE PROTEIN - DIPSTICK Negative (NEG-TRACE)
[2023-11-05 10:50] LABS: BASO% 0.2 % (0-3); EOS% 0.9 % (0-8); HEMATOCRIT 36.2 % (37.0-47.0); HEMOGLOBIN 12.4 g/dl (12.0-16.0); IMMATURE GRANULOCYTES 0.2 % (0.0-5.0); LYMPH% 17.3 % (15-41); MEAN CELL VOLUME 91.6 fL CALC (80.0-100.0); MEAN CORPUSCULAR HGB 31.4 pG CALC (26.0-32.0); MEAN CORPUSCULAR HGB CONC 34.3 g/dL CAL (32.0-36.0); MONO% 7.6 % (2-13); NEUT# 6.42 thou/uL (2.00-7.15); NEUT% 73.8 % (42-76); RED BLOOD COUNT 3.95 mill/uL (4.20-5.60); RED CELL DISTRI WIDTH 11.7 % (11.5-15.5)
[2023-11-05 10:50] LABS: URINE COLOR Yellow
[2023-11-05] MEDS ORDERED: AMOX/K CLAV875 M1 PO (13:23)
[2023-11-05] MEDS ORDERED: MIRALAX17 GM PO (13:23)
== END 2023-11-05 13:56 | disposition home or self-care (01) ==
LOC: ED 09:29
PROVIDERS: Emergency Medicine
DX: K57.30 Diverticulosis of large intestine without perforation or abscess without bleeding (principal); Z90.49 Acquired absence of other specified parts of digestive tract; I10 Essential (primary) hypertension; E03.9 Hypothyroidism, unspecified; K21.9 Gastro-esophageal reflux disease without esophagitis; K59.00 Constipation, unspecified
CPT/HCPCS: Q9967

== ENCOUNTER 2024-06-16 12:21 | Emergency (ER) | payer MEDICARE, OTHER ==
[~2024-06-16] VITALS: Ht 160 cm; Wt 68.0 kg
[~2024-06-16 12:21] MED LIST changes: +AMOX/K CLAV875 M1 PO
[2024-06-16 12:27] VITALS: BP 155/88
[2024-06-16 12:30] VITALS: BP 124/90
[2024-06-16] MEDS ORDERED: KETOROLAC TROMETHAMINE 15 MG/ML SDV IM ONE (12:35)
[2024-06-16] MEDS ORDERED: methylPREDNISolone SODIUM SUCC 125 MG/2 ML SDV IM ONE (12:35)
[2024-06-16] MEDS ORDERED: TORADOL PO (12:47)
[2024-06-16] MEDS ORDERED: PREDNISONE20 MG PO (12:59)
[2024-06-16 13:00] VITALS: BP 138/91
[2024-06-16 13:19] VITALS: BP 124/90
== END 2024-06-16 13:20 | disposition home or self-care (01) ==
LOC: ED 12:21
DX: M15.9 Polyosteoarthritis, unspecified (principal); I10 Essential (primary) hypertension; E78.5 Hyperlipidemia, unspecified; E03.9 Hypothyroidism, unspecified; K21.9 Gastro-esophageal reflux disease without esophagitis

== ENCOUNTER 2024-10-17 09:51 | Emergency (ER) | payer MEDICARE, OTHER ==
[~2024-10-17] VITALS: Ht 160 cm; Wt 70.0 kg
[~2024-10-17 09:51] MED LIST changes: +PREDNISONE20 MG PO; +TORADOL PO
[2024-10-17 10:14] VITALS: BP 147/71
[2024-10-17] MEDS ORDERED: BENZONATATE 200 MG/CAP PO ONE (10:20)
[2024-10-17 10:31] VITALS: BP 88/65
[2024-10-17 10:45] VITALS: BP 132/68
[2024-10-17 11:00] VITALS: BP 97/78
[2024-10-17 12:31] VITALS: BP 76/57
[2024-10-17] MEDS ORDERED: ZITHROMAX250 MG PO (12:32)
[2024-10-17] MEDS ORDERED: ALBUTEROL108 MCG/AC IN (12:32)
[2024-10-17 12:33] VITALS: BP 107/57
== END 2024-10-17 12:34 | disposition home or self-care (01) ==
LOC: ED 09:51
DX: U07.1 COVID-19 (principal); R05.9 Cough, unspecified; R09.81 Nasal congestion; J02.9 Acute pharyngitis, unspecified; R53.1 Weakness; R51.9 Headache, unspecified; I10 Essential (primary) hypertension

== ENCOUNTER 2024-12-17 21:07 | Emergency (ER) | payer MEDICARE, OTHER ==
[~2024-12-17] VITALS: Ht 160 cm; Wt 72.0 kg
[~2024-12-17 21:07] MED LIST changes: +ALBUTEROL108 MCG/AC IN; +ZITHROMAX250 MG PO
[2024-12-17 21:22] VITALS: BP 167/86
[2024-12-17 21:30] VITALS: BP 169/88
[2024-12-17] MEDS ORDERED: GLYCERIN 2 GM SUP PR ONE (21:30)
[2024-12-17] MEDS ORDERED: LIDOCAINE VISCOUS 2% 15 ML UDC PO ONE (21:30)
[2024-12-17 21:59] LABS: BASO% 0.7 % (0-3); HEMATOCRIT 38.1 % (37.0-47.0); HEMOGLOBIN 12.6 g/dl (12.0-16.0); IMMATURE GRANULOCYTES 0.2 % (0.0-5.0); LYMPH% 49.6 % (15-41); MEAN CELL VOLUME 93.8 fL CALC (80.0-100.0); MEAN CORPUSCULAR HGB CONC 33.1 g/dL CAL (32.0-36.0); MONO% 8.2 % (2-13); NEUT# 2.15 thou/uL (2.00-7.15); NEUT% 38.3 % (42-76); RED BLOOD COUNT 4.06 mill/uL (4.20-5.60); RED CELL DISTRI WIDTH 11.9 % (11.5-15.5)
[2024-12-17 22:08] LABS: ALBUMIN 3.8 g/dL (3.2-5.0); CREATININE 1.1 mg/dL (0.5-1.0); TOTAL PROTEIN 6.5 g/dL (6.3-8.2)
[2024-12-17 22:11] LABS: BILIRUBIN, TOTAL 0.4 mg/dL (0.02-1.3); POTASSIUM 5.4 mmol/l (3.5-5.1)
[2024-12-17 22:44] LABS: URINE BILIRUBIN - DIPSTICK Negative (NEGATIVE); URINE BLOOD DIPSTICK Negative (NEGATIVE); URINE GLUCOSE - DIPSTICK Negative (NEGATIVE); URINE KETONE Negative (NEGATIVE); URINE LEUK ESTERASE Negative (NEGATIVE); URINE NITRITE - DIPSTICK Negative (Negative); URINE PH 6.5 (4.5-8.0); URINE PROTEIN - DIPSTICK Negative (NEG-TRACE); URINE UROBILINOGEN - DIPSTICK 0.2 E.U./dL (0.2)
[2024-12-17 22:47] LABS: URINE COLOR Yellow
[2024-12-17] MEDS ORDERED: GLYCERIN INFANTS1 GM PR (23:48)
[2024-12-17] MEDS ORDERED: LIDOCAINE21 PR (23:49)
[2024-12-18] VITALS: BP 169/88
== END 2024-12-18 | disposition home or self-care (01) ==
LOC: ED 21:07
PROVIDERS: Family Medicine
DX: K56.41 Fecal impaction (principal); K64.9 Unspecified hemorrhoids; I10 Essential (primary) hypertension; E78.00 Pure hypercholesterolemia, unspecified; E03.9 Hypothyroidism, unspecified; K21.9 Gastro-esophageal reflux disease without esophagitis; Z87.891 Personal history of nicotine dependence